=== PATIENT | male | born 1960 | race Caucasian/White ===

== ENCOUNTER 2017-01-07 22:22 | Emergency (ER) | payer MEDICAID, SELFPAY ==
[~2017-01-07] VITALS: Ht 172.7 cm; Wt 64.0 kg
[2017-01-07] MEDS ORDERED: LORazepam 2 MG/ML, 1ML ONE (22:40)
[2017-01-07] MEDS ORDERED: THIAMINE 100MG TABLET ONE (22:48)
[2017-01-07 22:58] LABS: HEMOGLOBIN 15.1 g/dL (13.7-18.0); WHITE BLOOD COUNT 10.2 x10^3/uL (3.4-10)
[2017-01-07] MEDS ORDERED: LORazepam 2 MG/ML, 1ML IVPush ONE (23:00)
[2017-01-07] MEDS ORDERED: SODIUM CHLORIDE 0.9% 1,000ML IVBOLUS ONE (23:00)
[2017-01-07] MEDS ORDERED: THIAMINE 100MG TABLET PO ONE (23:00)
[2017-01-07 23:09] LABS: DAU SCREEN DISCLAIMER
[2017-01-07 23:10] LABS: BLOOD UREA NITROGEN 11 mg/dL (7-18)
[2017-01-08 01:47] VITALS: BP 144/81
== END 2017-01-08 01:51 | disposition home or self-care (01) ==
LOC: ED 22:41
DX: S00.531A Contusion of lip, initial encounter (principal); F10.239 Alcohol dependence with withdrawal, unspecified; R56.9 Unspecified convulsions; X58.XXXA Exposure to other specified factors, initial encounter; Y93.89 Activity, other specified; Y92.89 Other specified places as the place of occurrence of the external cause; Y99.8 Other external cause status
CPT/HCPCS: 36415; 70450; 80048; 80307; 82040; 85025; 93005; 96361; 96374; 99285; J2060; J7030; G0479